=== PATIENT | male | born 1960 | race Caucasian/White ===

== ENCOUNTER 2017-01-06 08:14 | Emergency (ER) | payer BC ==
[2017-01-06 08:18] VITALS: BP 140/85
--- NOTE | 2017-01-06 08:42 | ED ---
Tyler Valadez Alfonso, scribed for Willam Aragon MD on 01/06/17 at 0826 . GI/ HPI - HPI Summary HPI Summary: This patient is a 56 year old M presenting to [facility] accompanied by with a chief complaint of rectal bleeding since this morning. He states there is a mass protruding from my anus which began when he was having a BM. The patient rates the discomfort 2/10 in severity. Symptoms aggravated and alleviated by nothing. He reports loose stool. He denies constipation. He states he had two colonoscopies thus far with a third scheduled for March. PMHx of pre-DM, and HLD. PSHx of hernia operation at 6 years old and laminectomy at 44 years old. - History of Current Complaint Chief Complaint: EDGIBleed Stated Complaint: RECTAL BLEEDING Hx Obtained From: Patient Onset/Duration: Started Minutes Ago - This morning, Still Present Timing: Constant Severity: Mild Current Severity: Mild Pain Intensity: 2 - /10 Location of Pain: Rectal Pain Characteristics: Other: - Discomfort Associated Signs and Symptoms: Positive: Other: - He reports loose stool. He denies constipation. Aggravating Factor(s): Nothing Alleviating Factor(s): Nothing - Allergy/Home Medications Allergies/Adverse Reactions: Allergies Allergy/AdvReac Type Severity Reaction Status Date / Time No Known Allergies Allergy Verified 01/06/17 08:16 PMH/Surg Hx/FS Hx/Imm Hx Endocrine/Hematology History: Reports: Hx Diabetes - Pre Cardiovascular History: Reports: Hx Hypercholesterolemia Respiratory History: Reports: Hx Sleep Apnea Sensory History: Reports: Hx Contacts or Glasses - GLASSES Denies: Hx Hearing Aid Opthamlomology History: Reports: Hx Contacts or Glasses - GLASSES - Surgical History Surgery Procedure, Year, and Place: 1966 TONSILLECTOMY (AGE 5). 1966 ABDOMINAL HERNIA REPAIR (AGE 6). 1995 VASECTOMY (AGE 35),. 2004 LAMINECTOMY L5,L6, (AGE 44). 04/2012 COLONOSCOPY, [facility] 2012 Hx Anesthesia Reactions: No Infectious Disease History: Denies: Traveled Outside the [place] in Last 30 Days - Family History Known Family History: Positive: Hypertension - father, Diabetes - Father, Renal Disease - Failure father, Other - Gastric bypass father, HLD mother - Social History Alcohol Use: Daily Substance Use Type: Reports: None Type: Cigarettes Review of Systems Positive: Other - Positive rectal bleeding, "mass protruding from my anus," loose stool; negative constipation. All Other Systems Reviewed And Are Negative: Yes Physical Exam - Summary Physical Exam Summary: VITAL SIGNS: Reviewed. GENERAL: Patient is a well-developed and nourished male who is lying comfortable in the stretcher. Patient is not in any acute respiratory distress. HEAD AND FACE: No signs of trauma. No ecchymosis, hematomas or skull depressions. No sinus tenderness. EYES: PERRLA, EOMI x 2, No injected conjunctiva, no nystagmus. EARS: Hearing grossly intact. Ear canals and tympanic membranes are within normal limits. MOUTH: Oropharynx within normal limits. NECK: Supple, trachea is midline, no adenopathy, no JVD, no carotid bruit, no c- spine tenderness, neck with full ROM. CHEST: Symmetric, no tenderness at palpation LUNGS: Clear to auscultation bilaterally. No wheezing or crackles. CVS: Regular rate and rhythm, S1 and S2 present, no murmurs or gallops appreciated. ABDOMEN: Soft, non-tender. No signs of distention. No rebound no guarding, and no masses palpated. Bowel sounds are normal. RECTUM: Small rectal prolapse. EXTREMITIES: FROM in all major joints, no edema, no cyanosis or clubbing. NEURO: Alert and oriented x 3. No acute neurological deficits. Speech is normal and follows commands. SKIN: Dry and warm Triage Information Reviewed: Yes Vital Signs On Initial Exam: Initial Vitals Temp Pulse Resp BP Pulse Ox 96.4 F 87 16 140/85 98 01/06/17 08:16 01/06/17 08:16 01/06/17 08:16 01/06/17 08:16 01/06/17 08:16 Vital Signs Reviewed: Yes Diagnostics - Vital Signs Vital Signs Temp Pulse Resp BP Pulse Ox 01/06/17 08:16 96.4 F 87 16 140/85 98 - Laboratory Lab Statement: Any lab studies that have been ordered have been reviewed, and results considered in the medical decision making process. GIGU Course/Dx - Course Course Of Treatment: This patient is a 56 year old M presenting to [facility] accompanied by with a chief complaint of rectal bleeding since this morning. He states there is a mass protruding from my anus which began when he was having a BM. The patient rates the discomfort 2/10 in severity. Symptoms aggravated and alleviated by nothing. He reports loose stool. He denies constipation. He states he had two colonoscopies thus far with a third scheduled for March. PMHx of pre-DM, and HLD. PSHx of hernia operation at 6 years old and laminectomy at 44 years old. Assessment/Plan: Patient is positive for a small rectal prolapse. The prolapse was reduced without any complications. The patient is not in any discomfort. There is no rectal bleeding. He is comfortable. Therefore, he will be discharged home with surgical follow up by Dr. Barriga. Patient is hemodynamically stable and alert and oriented to person, place, and time. - Diagnoses Differential Diagnoses - Male: GI Foreign Body, Hemorrhoids, Other - Rectal prolapse Provider Diagnoses: Rectal prolapse Discharge - Discharge Plan Condition: Stable Disposition: HOME Patient Education Materials: Rectal Prolapse (ED) Referrals: Demetrius Barriga MD [Medical Doctor] - 1 Day Cesar William MD [Primary Care Provider] - 3 Days The documentation as recorded by the Tyler magana Alfonso accurately reflects the service I personally performed and the decisions made by , Willam Aragon MD.
== END 2017-01-06 08:45 | disposition home or self-care (01) ==
LOC: ED 08:14
DX: K62.3 Rectal prolapse (principal); E78.5 Hyperlipidemia, unspecified; R73.03 Prediabetes; E78.00 Pure hypercholesterolemia, unspecified
CPT/HCPCS: 99282

== ENCOUNTER 2017-09-03 11:18 | Day surgery (SDC) | payer BC ==
--- NOTE | 2017-08-26 16:32 | HP ---
CC: Dr. Cesar William at [facility] * PREOPERATIVE HISTORY AND PHYSICAL: DATE OF ADMISSION/SURGERY: 09/03/17 This patient is scheduled for same-day surgery admission by Dr. Barriga on , 09/03/17. ATTENDING SURGEON: Demetrius Barriga MD * (dictated by Oly Herrera NP). CHIEF COMPLAINT: Rectal polyp. HISTORY OF PRESENT ILLNESS: The patient is a 57-year-old male referred to Dr. Barriga from Dr. Richmond for evaluation of a rectal polyp. The patient has a history of a benign rectal polyp removed by Dr. Barriga in 2012. The patient has been having colonoscopies with Dr. Richmond and a lesion was found in the rectum. He is asymptomatic and denies any blood per rectum. Biopsy of the rectal polyp by Dr. Richmond was benign. Dr. Barriga has examined the patient, rigid sigmoidoscopy was carried out and an adenomatous mass was identified at approximately 8 cm and was somewhat mobile. The remainder of the exam appeared normal. Dr. Barriga has recommended transanal excision of the rectal polyp as a same-day surgery procedure and has described the nature of the surgical procedure, the rationale for the procedure, the relevant risks and benefits, and today I reviewed the expected postoperative care and recovery. The patient has had a chance to ask questions and stated that he understands the information and is satisfied with the answer given to his questions. He will sign surgical consent on the day of surgery. PAST MEDICAL HISTORY: 1. Obstructive sleep apnea, using CPAP. 2. Obesity. 3. Hypercholesterolemia. 4. Prediabetes. PAST SURGICAL HISTORY: Transanal excision of colon polyps in [address] Barriga ; excision of sinus polyps in 2011; laminectomy in 2004 and tonsillectomy many years ago. MEDICATIONS: 1. Metformin 500 mg p.o. daily, and he will hold the metformin on the day before and on the day of surgery. 2. Atorvastatin 10 mg p.o. daily. 3. Ibuprofen p.r.n. ALLERGIES: No known drug allergies. FAMILY HISTORY: Mother alive at age 84 with a history of breast cancer. Father at age 78 with a history of multiple myeloma. No known anesthesia complications, bleeding tendencies or clotting disorders in the family. 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 He is a nonsmoker. He drinks up to 7 alcoholic beverages per week and denies the use of other substances. REVIEW OF SYSTEMS: Constitutional: No fevers, chills, excessive fatigue or weight loss. Endocrine: He is prediabetic. No thyroid disease. Hematologic: No easy bruising or bleeding. No previous blood transfusions. Respiratory: No dyspnea on exertion. No chronic cough. Cardiovascular: No anginal chest pain or palpitations. Gastrointestinal: No nausea, vomiting, GI bleeding or constipation. He states that metformin causes loose stools. He has had no change in bowel habits. Genitourinary: No dysuria. Musculoskeletal: No complaints of joint or back pain. Neurologic: No headache, blurred vision, areas of focal weakness or numbness. General: No previous anesthesia complications. No history of deep vein thrombosis or pulmonary embolism. PHYSICAL EXAMINATION GENERAL SURVEY: The patient is a 57-year-old obese male, well developed, in no acute distress. VITAL SIGNS: Height 71-1/2 inches, weight 242 pounds, body mass index 33.3. Blood pressure 122/84, pulse 78 and regular, respiratory rate 18, temperature 97.3 tympanic. HEENT: Benign. NECK: Supple. No cervical lymphadenopathy. LUNGS: Breath sounds bilaterally clear and equal. HEART: Regular rate and rhythm. No murmurs or rubs appreciated. ABDOMEN: Obese. Active bowel sounds. Soft, nondistended, nontender throughout. No obvious masses, organomegaly, or evidence of ventral hernia. BACK: No CVA tenderness. GENITALIA EXAM: Deferred. RECTAL EXAM: As done by Dr. Barriga with a rigid sigmoidoscope revealed an adenomatous mass at approximately 8 cm that was mobile. No other abnormal findings. EXTREMITIES: Warm, without edema or skin ulceration. NEUROLOGIC: Alert and oriented x3. Steady gait. SKIN: Warm and dry, intact. IMPRESSION: Benign neoplasm of rectum. PLAN: Same-day surgery admission to Dr. Barriga's service on , 09/03/17 , for transanal excision of rectal polyp. CHAYITO HERRERA, COMIC BOOK ARTIST [id number]/[facility] #: [id number] [facility]
[~2017-09-03 11:18] MED LIST: Buffered Lidocaine 0.9% SYRIN* 5 ML/SYR SYRINGE INTRADERM ONE; Ertapenem* 1 GM in NS 0.9% 50 ML* 50 ML IVPB ONE; Famotidine IV* 10 MG/ML 2 ML (20 mg) IV ONE; Metoclopramide TAB* 10 MG PO ONE
[2017-09-03] MEDS ORDERED: Famotidine IV* 10 MG/ML 2 ML (20 mg) ONE (11:30)
[2017-09-03] MEDS ORDERED: Metoclopramide TAB* 10 MG ONE (11:30)
[2017-09-03] MEDS ORDERED: Ondansetron INJ* 2 MG/ML VIAL ONE (13:36)
[2017-09-03] MEDS ORDERED: Dexamethasone IV* 4 MG/ML 1 ML (4 MG) ONE (13:36)
[2017-09-03] MEDS ORDERED: Lidocaine 2% PF * 5 ML VIAL ONE (13:36)
[2017-09-03] MEDS ORDERED: Propofol* 10 MG/ML 20 ML BTL IV PUSH ONE (13:36)
[2017-09-03] MEDS ORDERED: fentaNYL* 50 MCG/ML 2 ML VIAL (100 MCG VIAL) ONE (13:36)
[2017-09-03] MEDS ORDERED: Midazolam* 1 MG/ML 5 ML VIAL (5 MG) ONE (13:36)
[2017-09-03] MEDS ORDERED: Ketorolac INJ* 30 MG/ML 1 ML VIAL ONE (13:36)
[2017-09-03] MEDS ORDERED: Bupivacaine-MPF SPINAL* 7.5 MG/2 ML AMP ONE (14:41)
[2017-09-03] MEDS ORDERED: Bupivacaine 0.25% SDV* 30 ML ONE (15:08)
[2017-09-03] MEDS ORDERED: oxyCODONE/Acetamin 5/325 MG* TAB PO PRN (15:54)
[2017-09-03] MEDS ORDERED: Ondansetron INJ* 2 MG/ML VIAL IV PRN (15:54)
[2017-09-03] MEDS ORDERED: Naloxone* 0.4 MG/ML 1 ML VIAL IV PRN (15:54)
[2017-09-03] MEDS ORDERED: fentaNYL* 50 MCG/ML 2 ML VIAL (100 MCG VIAL) IV PRN (15:54)
[2017-09-03 21:18] VITALS: BP 124/74
--- NOTE | 2017-09-04 12:41 | OP ---
CC: Demetrius Barriga MD; Dr. Cesar William; Charles Richmond MD OPERATIVE REPORT: DATE OF OPERATION: 09/03/17 DATE OF : 60 SURGEON: Demetrius Barriga MD RESILIENT TILE INSTALLER: Serina Astorga NP ANESTHESIOLOGIST: Dr. Samson. ANESTHESIA: Spinal anesthetic, local infiltration. PRE-OP DIAGNOSIS: Rectal polyp. POST-OP DIAGNOSIS: Rectal polyp. OPERATIVE PROCEDURE: Transanal excision of rectal polyp. DESCRIPTION OF PROCEDURE: The patient was supine on the operating room table. After adequate intravenous sedation and spinal anesthetic, he was put in the prone jackknife position with the buttocks taped apart. Anoscopy was carried out and there was approximately 4 cm polyp located anteriorly to the left of midline. This is excised full thickness at its base and sent in formalin for pathologic evaluation. The resultant defect in the rectal wall was closed using 2 layers of running 2-0 Vicryl. These were done full thickness. Rigid sigmoidoscopy is carried out afterwards and everything is carefully examined. Everything is patent above and the suture line is nicely closed. Local anesthetic is administered. The gauze packing is placed in the anal canal. He tolerated this well. He was brought to Recovery in good condition. No complications. No drains. Pathologic specimen is rectal polyps. Sponge and instrument counts correct. Estimated blood loss is less than 50 mL. [id number]/[facility] #: [id number] MTDD
== END 2017-09-03 21:02 | disposition home or self-care (01) ==
LOC: OR 11:18
PROVIDERS: ATTEND Surgery
DX: D37.5 Neoplasm of uncertain behavior of rectum (principal); R73.03 Prediabetes; G47.33 Obstructive sleep apnea (adult) (pediatric); E78.00 Pure hypercholesterolemia, unspecified
CPT/HCPCS: 88305; A9270-GY; J1100; J1335; J1885; J2250; J2405; J2704; J3010

== ENCOUNTER 2020-02-23 01:31 | Observation (INO) ==
[2020-02-23] MEDS ORDERED: NS 0.9% 1000 ml BAG 1,000 ML IV ONE (01:53)
[2020-02-23] MEDS ORDERED: Ondansetron 4 mg VIAL 2 MG/ML 2 ml VIAL IV ONE (01:53)
[2020-02-23 03:01] LABS: ABS Lymphocytes 0.9 10^3/ul (1.0-4.8); ABS Monocytes 0.5 10^3/ul (0-0.8); ABS Neutrophils 10.6 10^3/ul (1.5-7.7); Eosinophil % 0.1 %; Hematocrit 45 % (42-52); Hemoglobin 15.3 g/dL (14.0-18.0); Lymphocyte % 7.2 %; Mean Corpuscular HGB Conc 34 g/dL (31-36); Mean Corpuscular Hemoglobin 33 pg (27-31); Mean Corpuscular Volume 96 fL (80-94); Mean Platelet Volume 8.3 fL (7.4-10.4); Platelet Count 180 10^3/uL (150-450); Red Blood Count 4.63 10^6 /uL (4.18-5.48); Red Cell Distribution Width 13 % (10-15)
[2020-02-23 03:16] LABS: INR 1.08 (0.82-1.09)
[2020-02-23 03:18] LABS: ALT 26 U/L (7-52); AST 17 U/L (13-39); Albumin 4.6 g/dL (3.2-5.2); Albumin/Globulin Ratio 1.6 (1-3); Alkaline Phosphatase 59 U/L (34-104); Anion Gap 11 mmol/L (2-11); BUN/Creatinine Ratio 17.8 (8-20); Blood Urea Nitrogen 18 mg/dL (6-24); C Reactive Protein 3.94 mg/L (<8.01); CO2 Carbon Dioxide 24 mmol/L (22-32); Calcium 9.7 mg/dL (8.6-10.3); Chloride 100 mmol/L (101-111); EGFR African American 91.5 (>60); EGFR Non-African American 75.6 (>60); Globulin 2.8 g/dL (2-4); Glucose 218 mg/dL (70-100); Lipase < 10 U/L (11.0-82.0); Potassium 3.9 mmol/L (3.5-5.0); Sodium 135 mmol/L (135-145); Total Protein 7.4 g/dL (6.4-8.9)
[2020-02-23] MEDS ORDERED: Morphine 4 MG/ML VIAL (1 ml) IV ONE (03:33)
[2020-02-23 04:35] LABS: Urine Appearance Clear; Urine Bilirubin Negative (Negative); Urine Blood 1+ (Negative); Urine Color Straw; Urine Glucose 2+(150 mg/dL) (Negative); Urine Ketones 1+ (Negative); Urine Nitrite Negative (Negative); Urine Protein Negative (Negative); Urine Specific Gravity 1.013 (1.010-1.030); Urine Urobilinogen Negative (Negative)
[2020-02-23 04:51] LABS: Urine Bacteria 1+ (Absent); Urine Red Blood Cell 3+(>10/hpf) (Absent); Urine White Blood Cell Trace(0-5/hpf) (Absent)
[2020-02-23] MEDS ORDERED: cefTRIAXone 2 GM ADDV.VIAL 2 GM in NS 0.9% 100 ml BAG 100 ML IVPB ONE (05:06)
[2020-02-23] MEDS ORDERED: NS 0.9% 1000 ml BAG 1,000 ML IV SCH (05:30)
[2020-02-23] MEDS ORDERED: Ondansetron 4 mg VIAL 2 MG/ML 2 ml VIAL IV PRN ×2 (05:39→18:05)
[2020-02-23] MEDS: Morphine 2 MG/ML SYRINGE IV PRN ×2 (06:41→10:38)
[2020-02-23] MEDS: NS 0.9% 1000 ml BAG 1,000 ML IV SCH ×3 (06:41→20:20)
[2020-02-23] MEDS ORDERED: Magnesium Hydroxide LIQ 30 ML UDC PO PRN (11:57)
[2020-02-23] MEDS ORDERED: Senna TAB 8.6 mg TAB PO PRN (11:57)
[2020-02-23] MEDS ORDERED: Morphine 2 MG/ML SYRINGE IV PRN (13:56)
[2020-02-23] MEDS ORDERED: fentaNYL 100 mcg/2 ml 50 MCG/ML VIAL ONE (17:38)
[2020-02-23] MEDS ORDERED: Midazolam 2 mg/2 ml VIAL 1 mg/ml 2 ml VIAL (2 mg) ONE (17:38)
[2020-02-23] MEDS ORDERED: Rocuronium 50 mg VIAL 10 mg/ml 5 ml VIAL (50 mg) ONE (17:38)
[2020-02-23] MEDS ORDERED: Propofol 10 MG/ML 20 ML BTL ONE (17:39)
[2020-02-23] MEDS ORDERED: Iohexol 180 (CONTRAST) 10 ML SDV IV ONE (17:53)
[2020-02-23] MEDS ORDERED: Gentamicin ADULT 160 MG in NS 0.9% 100 ml BAG 100 ML IVPB ONE (18:00)
[2020-02-23] MEDS ORDERED: fentaNYL 100 mcg/2 ml 50 MCG/ML VIAL IV PRN (18:05)
[2020-02-23] MEDS ORDERED: Naloxone 0.4 mg VIAL 0.4 mg/ml 1 ml VIAL IV PRN (18:05)
[2020-02-23] MEDS ORDERED: HYDROmorphone 1 MG/1 ML SYRINGE IV PRN (18:05)
[2020-02-23] MEDS ORDERED: Dexamethasone IV 4 MG/ML VIAL 1 ml VIAL ONE (18:05)
[2020-02-23] MEDS ORDERED: Ondansetron 4 mg VIAL 2 MG/ML 2 ml VIAL ONE (18:05)
[2020-02-23] MEDS ORDERED: Lidocaine 2% JELLY 10 ML JELLY TOPICAL PRN (20:58)
[2020-02-24] MEDS: NS 0.9% 1000 ml BAG 1,000 ML IV SCH (03:07)
[2020-02-24] MEDS ORDERED: cefTRIAXone 1 gm/50 mL NS BAG 1 GM/50 ML BAG IVPB SCH (05:00)
[2020-02-24 07:39] VITALS: BP 108/71
[2020-02-29 17:13] LABS: Interpretation 100% Uric acid
== END 2020-02-24 12:08 | disposition home or self-care (01) ==
LOC: ED 01:31 → SSU 01:31
PROVIDERS: ADMIT Pediatrics; ATTEND Internal Medicine